=== PATIENT | male | born 1980 | race Caucasian/White ===

== ENCOUNTER 2020-09-05 14:58 | Emergency (ER) | payer OTHER, SELFPAY ==
--- NOTE | ~2020-09-05 | CT_ITS ---
EXAMINATION: CTA chest PE protocol DATE: 09/05/2020 17:09 INDICATION: Chest tightness, lethargy, COVID positive TECHNIQUE: Computed tomography angiography (CTA) of the chest was performed with 100 mL Omnipaque-350 intravenous contrast timed to evaluate the pulmonary arteries. Coronal maximum intensity projection 3D-reconstructions were created by the technologist. The dose-length product (DLP) was 403.76 mGy-cm. Automated exposure control and iterative reconstruction technique were employed. COMPARISON: None. FINDINGS: The pulmonary arteries are well-opacified. No pulmonary embolism is identified. There are p eripheral groundglass airspace opacities with a lower lung zone predominance. There is no pleural eff usion or pneumothorax. No pathologically enlarged thoracic lymph nodes are identified. The heart size is normal. Bilateral gynecomastia is noted. IMPRESSION: 1. No pulmonary embolism. 2. Peripheral groundglass airspace opacities with a lower lung zone predominance, consistent with ate lectasis and/or pneumonia. Reviewed, dictated and finalized at location A. [employer] TE[employer]ER IMPRESSION: 1. No pulmonary embolism. 2. Peripheral groundglass airspace opacities with a lower lung zone predominanc e, consistent with atelectasis and/or pneumonia.
--- NOTE | ~2020-09-05 | XR_ITS ---
EXAMINATION: XR chest 2V DATE: 09/05/2020 15:38 INDICATION: Chest pain and tightness TECHNIQUE: PA and lateral views of the chest are obtained. COMPARISON: None available FINDINGS: The lungs are free of acute opacities. There is no pleural effusion or pneumothorax. The ca rdiomediastinal silhouette is normal. The visualized bones and soft tissues are unremarkable. IMPRESSION: 1. No acute cardiopulmonary abnormality. Reviewed, dictated and finalized at location A. IC SPEAKER
--- NOTE | 2020-09-05 15:03 | ECG_ITS ---
Measurements Intervals [place] Rate: 85 P: 51 MN: 145 QRS: 11 QRSD: 124 T: 31 QT: 391 QTc: 468 Interpretive Statements SINUS RHYTHM POSSIBLE LEFT ATRIAL ENLARGEMENT RIGHT BUNDLE BRANCH BLOCK ABNORMAL ECG Electronically Signed On 09-05-2020 16:42:47 [employer] by Russel Rubi D.O.
--- NOTE | 2020-09-05 15:03 | ED.CHESTPAIN ---
HPI - Chest Pain General Chief Complaint: Weakness Stated Complaint: chest tightness, tingling to fingers Time Seen by Provider: 09/05/20 15:03 Source: patient Mode of arrival: ambulatory Limitations: no limitations History of Present Illness HPI narrative: Patient is a 40-year-old male who presents for evaluation of chest tightness. Patient states he has had a heavy sensation in his chest since around 9 AM this morning. Patient reports it is not painful, but was associated with some bilateral hand tingling and patient states he is becoming very anxious regarding the tightness thus wanted to seek care in the emergency department. He denies any jaw pain, shoulder pain, nausea, vomiting or associated diaphoresis. No ripping or tearing sensation to the back or flanks. No pleuritic pain or shortness of breath. Patient states that he had positive Covid test on August 13 after becoming symptomatic August 08. He states he had a fairly mild course of sore throat, myalgias, mild headache and the symptoms resolved after about a week. He never had any significant cough or shortness of breath. Patient's denies any recent heavy lifting or exertional activities. He states that he was able to have a normal workout this morning with some mildly decreased exercise intolerance likely secondary to Covid. Patient denies any history of heart problems. No history of sudden cardiac in the family. No history of early coronary artery disease or heart attack in immediate family members. Related Data Home Medications Medication Instructions Recorded Confirmed No Home Medications 09/05/20 09/05/20 Allergies Allergy/AdvReac Type Severity Reaction Status Date / Time No Known Allergies Allergy Verified 09/05/20 15:09 Review of Systems Review of Systems: Narrative: CONSTITUTIONAL: Denies fever, chills, or sweats. EYES: Denies visual changes, redness, or discharge. ENT: Denies rhinorrhea, congestion, sore throat, or otalgia. CARDIOVASCULAR: Denies chest pain, reports chest heaviness without palpitations or leg edema RESPIRATORY: Denies cough or dyspnea. GASTROINTESTINAL: Denies abdominal pain, nausea, vomiting, or diarrhea. GENITOURINARY: Denies dysuria or hematuria. SKIN: Denies rash or itching. MUSCULOSKELETAL: Denies back pain, joint pain, or myalgia. NEUROLOGIC: Denies headache, numbness, or weakness. PSYCHIATRIC: Reports anxiety that is contributing to his symptoms PMFSH Past Medical History Medical History Pneumothorax Surgical History Surgical History H/O chest tube placement Social History Social History (Updated 09/05/20 @ 15:25 by Lia Gonzalez MD) Smoking status: Never smoker Alcohol intake: current Alcohol use details: Rare, social Substance use: never Living arrangements: with family Gender identity (if verbalized by the patient): Male Exam Narrative: Exam Narrative: GENERAL: Awake, alert, conversant HEAD: Normocephalic, atraumatic. EYES: PERRLA and EOMI. ENT: Nares clear, no rhinorrhea or epistaxis. Mucous membranes moist. NECK: Supple. CHEST: No respiratory distress, breathing even and non labored, lungs are clear to auscultation bilaterally, no crackles, no wheezing no reproducible chest wall pain HEART: Mildly tachycardic rate, sinus rhythm ABDOMEN:Non distended, non tender EXTREMITIES: Normal range of motion. No calf pain, no erythema, no edema. SKIN: Warm, dry, no rash. NEURO:No focal deficits. Alert and oriented x3 Course Vital Signs Vital signs: Vital Signs Temperature 36.9 C 09/05/20 15:05 Pulse Rate 108 H 09/05/20 15:05 Respiratory Rate 18 09/05/20 15:05 Blood Pressure 175/96 H 09/05/20 15:05 Pulse Oximetry 100 09/05/20 15:05 Temperature 36.9 C 09/05/20 15:05 Pulse Rate 84 09/05/20 18:34 Respiratory Rate 16 09/05/20 18:34 Blood Pressure
[2020-09-05 15:05] VITALS: BP 175/96; PULSE 108; RESP 18; TEMP 36.9; O2SAT 100
[2020-09-05 15:23] LABS: Basophils Percent Auto 0.4 % (0.2-1.2); Eosinophils Absolute Auto 0.1 K/mm3 (0-0.3); Eosinophils Percent Auto 0.8 % (0-4.4); Hematocrit 42.8 % (42.0-52.0); Immature Granulocyte Absolute 0.04 K/mm3 (0.00-0.031); Immature Granulocyte Percent A 0.5 % (0-0.5); Lymphocytes Absolute Auto 1.51 K/mm3 (0.9-3.2); Lymphocytes Percent Auto 18.1 % (18.3-44.2); Mean Corpuscular Hemoglobin 28.7 pg (26-34); Mean Corpuscular Volume 81.8 fl (80-100); Mean Platelet Volume 10.1 fl (7.4-10.4); Monocytes Absolute Auto 0.7 K/mm3 (0.1-0.6); Neutrophils Percent Auto 72.2 % (45.5-73.1); Platelet Count Result 234 k/mm3 (150-375); Red Blood Count 5.23 M/mm3 (4.6-6.20); Red Cell Distribution Width 11.9 % (11.5-14.5); White Blood Count 8.4 K/mm3 (4.5-10.0)
--- NOTE | 2020-09-05 15:51 | PC.NURSE ---
called heme, added on d dimer 1234
[2020-09-05 15:55] LABS: INR 0.9; Prothrombin Time 12.5 Seconds (11.1-14.7)
[2020-09-05 15:56] LABS: Partial Thromboplastin Time 27.8 SECONDS (22.3-36.8)
[2020-09-05 15:59] VITALS: BP 140/81; PULSE 87; PULSE 89; RESP 16; O2SAT 100
[2020-09-05 16:05] LABS: D Dimer 0.91 ug/mL (<0.48)
[2020-09-05 16:45] LABS: Anion Gap 10 mmol/L (8-16); Blood Urea Nitrogen 17 mg/dL (9-20); Calcium 9.9 mg/dL (8.4-10.2); Carbon Dioxide 29 mmol/L (22-30); Chloride 101 mmol/L (98-107); Estimated CRCL calculation 91 ml/min; Estimated Glomerular Filt Rate > 60; Glucose 113 mg/dL (75-110); Lipase 58 U/L (23-300); Potassium 3.5 mmol/L (3.4-5.0); Sodium 140 mmol/L (137-145)
[2020-09-05 16:57] LABS: Troponin I < 0.012 ng/mL (0.000-0.034)
[2020-09-05 17:35] VITALS: PULSE 84; RESP 16; O2SAT 99
[2020-09-05 18:29] VITALS: BP 136/84; PULSE 85; RESP 16; O2SAT 99
[2020-09-05 18:34] VITALS: BP 135/75; PULSE 84; RESP 16; O2SAT 99
[2020-09-05 18:35] LABS: Troponin I < 0.012 ng/mL (0.000-0.034)
== END 2020-09-05 18:56 | disposition home or self-care (01) ==
PROVIDERS: Emergency Provider Emergency Medicine; PCP General Practice
DX: R07.89 Other chest pain (principal); R91.8 Other nonspecific abnormal finding of lung field; I45.10 Unspecified right bundle-branch block; R94.31 Abnormal electrocardiogram [ECG] [EKG]
CPT/HCPCS: 36415; 71046; 71275; 80048; 83690; 84484; 85025; 85380; 85610; 85730; 93005; 99284; Q9967